=== PATIENT | male | born 1975 | race Caucasian/White ===

== ENCOUNTER 2025-04-22 15:52 | Emergency (ER) | payer BC, SELFPAY ==
[2025-04-22] VITALS (7 sets, daily range): BP systolic 114–175; BP diastolic 70–102; PULSE 95–110; RESP 20–25; TEMP 36.7–37.1; O2SAT 94–98; BMI 38.9
--- NOTE | 2025-04-22 16:22 | EKG12_ITS ---
Test Reason : GENERAL Blood Pressure : */* mmHG Vent. Rate : 96 BPM Atrial Rate : 96 BPM P-R Int : 184 ms QRS Dur : 74 ms QT Int : 352 ms P-R-T Axes : 32 4 14 degrees QTcB Int : 444 ms Normal sinus rhythm Possible Inferior infarct , age undetermined Abnormal ECG Confirmed by DARIO GRAY MD ([id number]), publications editor ISRAEL GALVAN ([id number]) on 04/23/2025 8:33:06 AM Referred By: Confirmed By: DARIO GRAY MD
--- NOTE | 2025-04-22 16:22 | EX.ED.DYSGE1 ---
HPI History of Present Illness Chief Complaint: General Illness Detail of Chief Complaint: Cough Informant: patient Narrative Narrative: Patient presents to the emergency department complaint of a cough that started about a month and a half ago. Patient states initially he had intermittent fevers. He was treated with antibiotics and steroids. He started feeling better but then the cough never went away. Complains of soreness in his chest with the cough. 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 No history of PE or DVT. Remote history of COVID. He has history of hypertension and history of leg edema. Patient denies indigestion or heartburn symptoms. [facility] Medical History (Updated 04/22/25 @ 18:[address] Bernie Garland, DO) Hypothyroid Gout HTN (hypertension) Home Medications ?Medication ?Instructions ?Recorded ?Last Taken ?Type albuterol sulfate 2.5 mg/3 mL 2.5 mg inhalation Q4H PRN SOB 04/22/25 04/22/25 History (0.083 %) solution for nebulization albuterol sulfate 90 mcg/actuation 2 inh inhalation Q6H PRN shortness 04/22/25 04/22/25 History aerosol inhaler of breath or wheezing allopurinol 300 mg tablet 300 mg PO DAILY 04/22/25 04/22/25 History amlodipine 10 mg tablet 10 mg PO DAILY 04/22/25 04/22/25 History aspirin 81 mg chewable tablet 1 tab PO DAILY 04/22/25 04/22/25 History benzonatate 200 mg capsule 200 mg PO TID PRN cough #20 caps 04/22/25 Unknown Rx fluticasone propionate 50 1 spray intranasal Q12H PRN 04/22/25 Unknown History mcg/actuation nasal allergy symptoms spray,suspension furosemide 40 mg tablet 40 mg PO BID 04/22/25 04/22/25 History irbesartan 150 mg tablet 150 mg PO DAILY 04/22/25 04/22/25 History levothyroxine 100 mcg tablet 100 mcg PO DAILY 04/22/25 04/22/25 History phendimetrazine tartrate 35 mg 35 mg PO BID WEIGHT LOSS 04/22/25 04/22/25 History tablet potassium chloride 10 mEq 10 meq PO DAILY 04/22/25 04/22/25 History capsule,extended release Allergy/AdvReac Type Severity Reaction Status Date / Time loratadine (From Claritin) Allergy Intermediate itching Verified 04/22/25 15:57 codeine Allergy Unknown unknown Verified 04/22/25 15:57 Social History Smoking Status: Current every day smoker tobacco type: cigarettes and smokeless tobacco ROS ROS ED Review of Systems ROS Unobtainable: other Constitutional Constitutional ED: Reports lethargy; Denies chills, fever(s), sweats or weight loss Eyes Eyes: Denies blurry vision, change in vision or diplopia ENT ENT ED: Denies rhinorrhea or sore throat Cardiovascular Cardiovascular: Reports chest pain; Denies orthopnea or racing heartbeat Respiratory/Chest Respiratory/Chest: Reports cough; Denies dyspnea, dyspnea on exertion, orthopnea or sputum Gastrointestinal Gastrointestinal: Denies abdominal pain, diarrhea, nausea or vomiting Genitourinary Genitourinary ED: Denies dysuria, hematuria or urinary frequency Musculoskeletal Musculoskeletal: Denies arthralgias, back pain, myalgias or neck pain Integumentary Denies abscess, Abrasions or rash Neurologic Neurologic: Denies headache(s) or weakness Psychiatric Psychiatric: Denies anxiety, depression or suicidal thoughts Endocrine Endocrinology: Denies polydipsia, polyphagia or polyuria Hematologic/Lymphatic Hematologic/Lymphatic: Denies easy bleeding, easy bruising or lymphadenopathy Allergic/Immunologic Allergic/Immunologic ED: Denies mouth swelling, tongue swelling or urticaria EXAM Physical Exam Const Vital Signs: 04/22/25 15:53 04/22/25 15:56 04/22/25 16:10 Temperature 98.3 F 98.3 F Temperature Source Oral Oral Pulse Rate 100 95 Respiratory Rate 20 H 20 H Respiratory Effort Normal Respiratory Pattern Tachypnea Blood Pressure 175/102 H 115/70 Blood Pressure Mean 126 85 Pulse Ox 98 95 Oxygen Delivery Method Room Air Room Air 04/22/25 16:56 04/22/25 17:00 04/22/25 17:41 Temperature 98.3 F 98.3 F 98.7 F Temperature Source Oral Oral Oral Pulse Rate 99 110 H 101 H Respiratory Rate 22 H 22 H 21 H Respiratory Effort Respiratory Pattern Blood Pressure 114/76 114/76 131/78 H Blood Pressure Mean 88 88 95 Pulse Ox 98 97 97 Oxygen Delivery Method Room Air Room Air 04/22/25 18:00 Temperature 98.4 F Temperature Source Oral Pulse Rate 97 Respiratory Rate 25 H Respiratory Effort Respiratory Pattern Blood Pressure 132/81 H Blood Pressure Mean 98 Pulse Ox 96 Oxygen Delivery Method Room Air Positive well nourished and well developed General Appearance ED: well developed and NAD HEENT Reports TM's clear and moist mucous membranes normocephalic and atraumatic; Negative for trauma or tenderness Tympanic Membrane ED: Yes TM's clear Eyes PERRL and EOMs intact bilaterally General Eye ED: Negative for pale conjunctiva or scleral icterus Neck no lymphadenopathy, supple and no JVD General: Negative for tenderness Chest Wall inspection of chest normal and palpation of chest normal Chest: Negative for tenderness Resp normal respiratory effort and clear to auscultation bilaterally Effort and Inspection: Negative for respiratory distress or pain with movement Auscultation: Negative for rhonchi, wheezes or diminished lung sounds Cardio regular rate, regular rhythm, S1 normal heart sound, S2 normal heart sound and no murmurs Peripheral Pulses: pulses 2+ throughout GI normal to inspection, nondistended, normoactive bowel sounds, soft to palpation, non-tender, non-distended and no masses Back/Spine no CVA tenderness and no thoracic nor lumbar tenderness Extremity normal to inspection Extremity Narrative: +1 edema both lower extremities. General Extremety ED: Yes edema General Extremity: edema Neuro oriented x3, CN's II-XII intact bilaterally, no sensory deficits noted and gait normal Sensorium / Orientation: awake, alert, oriented to person, oriented to place and oriented to time Motor Exam: strength 5/5 throughout and strength abnormal Psych mental status grossly normal Skin no rashes or lesions noted and no wounds MDM MDM MDM Narrative Medical decision making narrative: Patient presents with ongoing cough for about a month and a half. Initially had an illness with this. In the differential would be pneumonia versus PE versus cardiac etiology. He has not had heartburn symptoms. He is on irbesartan which can cause a chronic cough but less likely than a an ELOY inhibitor. Patient had an EKG obtained on arrival that showed sinus rhythm with ventricular rate of 96 bpm with no acute ST segment changes. CBC with differential shows a white count of 10.8 with hemoglobin 14.9 and platelet count of 356. Chemistries unremarkable. BT EGG CASER was normal at 103. Troponin normal at 11. D-dimer was negative at less than 0.27. 1 view chest x-ray was unremarkable. At this point etiology of chronic cough unclear. He states that he had steroids 3 weeks ago and it really did not make much difference in his symptoms. I do not hear any wheezing on exam. Will treat with Nani Busch. Will refer to pulmonology. After discussion with patient he states that he did mention that he does have diagnosis of COPD and was diagnosed about a year ago by a lung specialist which she does not see on a regular basis. Lab Data Attestation: I reviewed the patient's lab results. Labs: Laboratory Results - last 24 hr 04/22/25 16:37 WBC 10.8 RBC 5.14 Hgb 14.9 Hct 43.5 MCV 84.6 MCH 29.0 MCHC 34.3 RDW Std Deviation 43.6 RDW Coeff of [place] 14.2 Plt Count 356 MPV 10.4 Immature Gran % (Auto) 0.400 Neut % (Auto) 63.6 Lymph % (Auto) 22.4 Hale % (Auto) 9.1 Eos % (Auto) 3.6 Baso % (Auto) 0.9 Absolute Neuts (auto) 6.8 Absolute Lymphs (auto) 2.41 Nucleated RBC % 0 D-Dimer Quant (PE/DVT) < 0.27 L Sodium 139 Potassium 4.4 Chloride 101 Carbon Dioxide 26.3 Anion Gap 11 BUN 16 Creatinine 1.19 Estim Creat Clear Calc 112.61 Est GFR (MDRD) Non-Af 74 BUN/Creatinine Ratio 13.4 Glucose 115 H Calcium 9.5 Troponin T High Sens 11 NT pro BNP II 103 Radiography Diagnostic Testing: Clinical Impression(s) from Imaging Studies Chest X-Ray 04/22/25 16:25 IMPRESSION: No evidence of acute pulmonary disease. Reading Location: [id number] 1 view chest x-ray obtained interpreted by myself as no evidence of infiltrate or pneumothorax or acute disease process. EKG Initial EKG: Attestation: I personally reviewed and interpreted this EKG as follows: Comments: Sinus rhythm with rate of 96 bpm with no acute ST segment changes Discharge Plan Triage Chief Complaint: General Illness ED Provider: Bernie Garland Dx/Rx/DC Orders Clinical Impression: Cough Instructions: Cough Prescriptions: New benzonatate 200 mg capsule 200 mg PO TID PRN (Reason: cough) Qty: 20 0RF No Action furosemide 40 mg tablet 40 mg PO BID albuterol sulfate 2.5 mg /3 mL (0.083 %) solution for nebulization 2.5 mg inhalation Q4H PRN (Reason: SOB) phendimetrazine tartrate 35 mg tablet 35 mg PO BID levothyroxine 100 mcg tablet 100 mcg PO DAILY amlodipine 10 mg tablet 10 mg PO DAILY aspirin 81 mg tablet,chewable 1 tab PO DAILY allopurinol 300 mg tablet 300 mg PO DAILY irbesartan 150 mg tablet 150 mg PO DAILY albuterol sulfate 90 mcg/actuation HFA aerosol inhaler 2 inh inhalation Q6H PRN (Reason: shortness of breath or wheezing) fluticasone propionate 50 mcg/actuation spray,suspension 1 spray INTRANASAL Q12H PRN (Reason: allergy symptoms) potassium chloride 10 mEq capsule, extended release 10 meq PO DAILY Primary Care Provider: KIM PEÑA Referrals: KIM PEÑA [Other] Baltazar Montoya DO [Med Staff - Active Staff, Pulmonary Medicine] - 3-5 Days Print Language: Greek Disposition Disposition: Home, Self Care
--- NOTE | 2025-04-22 16:25 | RAD_ITS ---
PROCEDURE: CHEST 1 VIEW (PORTABLE) 04/22/2025 REASON FOR EXAM: COUGH TECHNIQUE: Frontal view of the chest. COMPARISON: None. FINDINGS: Lungs/Pleura: Clear. No airspace consolidation or sizable pleural effusion. Heart/Mediastinum: Within normal limits. Bones/Soft tissues: Mild degenerative changes of the spine. RAD/Chest 1 View (Portable) IMPRESSION: No evidence of acute pulmonary disease. Reading Location: [id number]
[2025-04-22 17:08] LABS: Hematocrit 43.5 % (40-54); Hemoglobin 14.9 g/dL (13.0-16.5); Immature Granulocytes Count 0.040 X10^3/uL (0.0-0.0); Mean Corp Hgb Conc 34.3 g/dL (32-36); Mean Corpuscular Volume 84.6 fL (80-94); Mean Platelet Vol. 10.4 fl (6.2-12.0); NRBC Flagged by Analyzer 0 % (0-5); Platelet Count 356 K/mm3 (150-450); RBC Distribution Width CV 14.2 % (11.6-14.6); RBC Distribution Width SD 43.6 fl (35.1-43.9); Red Blood Count 5.14 M/mm3 (4.6-6.2); White Blood Count 10.8 K/mm3 (4.4-11.0)
[2025-04-22 17:14] LABS: Troponin T High Sensitivity 11 ng/L (<=22)
[2025-04-22 17:16] LABS: Anion Gap 11 (5-15); BUN 16 mg/dL (4-19); BUN/Creat Ratio 13.4 RATIO (10-20); Calcium,Total 9.5 mg/dL (7.6-11.0); Carbon Dioxide 26.3 mmol/L (21.0-32.0); Chloride 101 mmol/L (98-108); Estimated Creatinine Clearance 112.61 ml/min (50-250); Glucose 115 mg/dL (70-99); Potassium 4.4 mmol/L (3.3-5.1); Pro- Brain NATRIURETIC PEPTIDE 103 pg/mL (<=900)
[2025-04-22 18:14] LABS: D-Dimer Quantitative (DVT/PE) < 0.27 FEU/ug/m (0.27-0.49)
[2025-04-22 19:01] LABS: Troponin T High Sens 2 HR 18 ng/L (<=22)
== END 2025-04-22 18:58 | disposition home or self-care (01) ==
PROVIDERS: Emergency Provider Emergency Medicine; Visit Provider Emergency Medicine
DX: R05.9 Cough, unspecified (principal); J44.9 Chronic obstructive pulmonary disease, unspecified; I10 Essential (primary) hypertension; F17.220 Nicotine dependence, chewing tobacco, uncomplicated; F17.210 Nicotine dependence, cigarettes, uncomplicated; M10.9 Gout, unspecified; Z79.899 Other long term (current) drug therapy; E03.9 Hypothyroidism, unspecified; Z79.890 Hormone replacement therapy
CPT/HCPCS: 71045; 80048; 83880; 84484; 85025; 85379; 93005; 99284; A4216